=== PATIENT | male | born 1960 | race Caucasian/White ===

== ENCOUNTER → 2017-02-16 | Outpatient (CLI) | payer BC ==
[~2017-02-16] VITALS: Ht 185.4 cm; Wt 92.1 kg
[~2017-02-16] MED LIST: CPRUNK; LORA-741 PO
[2017-02-16 15:33] VITALS: BP 150/95; PULSE 108; Ht 185.4 cm; Wt 92.1 kg
== END | disposition home or self-care (01) ==
LOC: C.NEUR 15:21
PROVIDERS: ATTEND Internal Medicine Pulmonary Disease
DX: R06.83 Snoring (principal); R53.83 Other fatigue

== ENCOUNTER → 2017-03-05 | Outpatient (CLI) | payer BC ==
--- NOTE | 2017-03-08 00:46 | POLYSOMNOGRAPH REPORT ---
CLINICAL DATA: A 57-year-old male with BMI of 26.8 referred for fatigue, intermittent gasping at night, snoring, and poor sleep quality. On the evening of 03/05/2017, a home sleep apnea test was performed using a BIOeCON type 3 monitor. RECORDING RESULTS: Total recording time was 9.6 hours. The patient's monitoring time and estimated sleep time was 8.1 hours. RESPIRATORY DATA: There was no evidence of clinically significant sleep apnea seen. The TAMARA was 2.6. There was 1 obstructive, 1 mixed, and 6 central apneic episodes. There were 13 hypopneic episodes. The longest respiratory event was 46 seconds. OXIMETRY DATA: No hypoxemia was seen. Oxygen jace was 89%. Mean saturation was 92%. HEART RATE DATA: Heart rates ranged from 52-64 beats per minute. SNORING DATA: Snoring was recorded intermittently throughout the night. PHYSICAL THERAPY AIDES TEACHER'S COMMENTS: The patient reported that he slept very well on the night of this exam. Snoring was present throughout the test. There were occasional hypopneas and apneas seen, all of which occurred when he was on his back. IMPRESSION: No evidence of clinically significant sleep apnea/hypopnea or nocturnal hypoxemia. RECOMMENDATIONS: The patient should continue to practice good sleep hygiene. SANDY
== END | disposition home or self-care (01) ==
LOC: C.NEUR 08:30
PROVIDERS: ATTEND Internal Medicine Pulmonary Disease
DX: R53.83 Other fatigue (principal); R06.83 Snoring

== ENCOUNTER → 2017-03-07 | Outpatient (CLI) | payer BC ==
[2017-03-07 11:11] LABS: BLOOD UREA NITROGEN 22 mg/dl (7-18); BUN/CREATININE RATIO 20.4 (10-20)
== END | disposition home or self-care (01) ==
LOC: C.LABBC 08:18
PROVIDERS: ATTEND Urology
DX: C61 Malignant neoplasm of prostate (principal)

== ENCOUNTER → 2017-03-08 | Outpatient (CLI) | payer BC ==
[~2017-03-08] MED LIST changes: +GADAVIST IV PRN
--- NOTE | 2017-03-08 14:54 | DIAGNOSTIC IMAGING REPORT ---
PROSTATE MRI COMBO CLINICAL HISTORY: 57 years-old Male presenting with ELEVATED PSA, 12/10/16. PSA 2.2 ng/mL. TECHNIQUE: Multisequence, multiplanar MR imaging of the prostate was performed before and after the administration of intravenous contrast. Additional postprocessing was performed on a separate Stampt workstation by the radiologist for 3-D volumetric segmentation of the prostate and contouring of region(s) of interest (ALEXUS) for targeting. IV contrast: 9 mL of Gadavist. COMPARISON: CT from 2010. FINDINGS: Prostate: The prostate measures 4.5 x 3.6 x 4.9 cm (DynaCAD prostate boundary segmentation volume 44 mL). Moderate changes of benign prostatic hyperplasia. Precontrast T1 weighted imaging demonstrates no evidence of intrinsic T1 hyperintensity to suggest hemorrhage. Intrinsic T1 hyperintensity within the left seminal vesicle could indicate hemorrhage or inspissated material. No suspicious lesion is apparent in the transition or peripheral zones. Bladder: Bladder wall thickening likely indicating chronic outlet obstruction. Bowel: Mild circumferential thickening of the rectal wall with early enhancement likely indicates presence of internal hemorrhoids. No focal masslike thickening. Peritoneum: No free fluid in the pelvis. Trace bilateral hydroceles. Lymph nodes: No lymphadenopathy in the visualized portion of the pelvis. Vasculature: Iliac vessels patent. Osseous structures: Normal bone marrow signal intensity. Fat-containing inguinal hernias. IMPRESSION: 1. No suspicious lesion in the prostate for targeted biopsy. 2. Benign prostatic hyperplasia. Electronically signed by: Daron Sultana M.D. 03/08/2017 2:53 PM Dictated Date/Time: 03/08/2017 2:39 PM
== END | disposition home or self-care (01) ==
LOC: C.MRIBC 12:18
PROVIDERS: ATTEND Urology
DX: C61 Malignant neoplasm of prostate (principal); R97.20 Elevated prostate specific antigen [PSA]

== ENCOUNTER → 2017-09-12 | Outpatient (CLI) | payer OTHER ==
[~2017-09-12] MED LIST changes: -GADAVIST IV PRN
[2017-09-12 17:31] LABS: BLOOD UREA NITROGEN 18 mg/dl (7-18); CREATININE 1.15 mg/dl (0.60-1.40)
== END | disposition home or self-care (01) ==
LOC: C.LABBC 14:55
PROVIDERS: ATTEND Urology
DX: C61 Malignant neoplasm of prostate (principal)

== ENCOUNTER → 2017-09-24 | Outpatient (CLI) | payer OTHER ==
[~2017-09-24] MED LIST changes: +GADAVIST IV PRN
--- NOTE | 2017-09-24 15:21 | DIAGNOSTIC IMAGING REPORT ---
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 PSA 5.17 ng/mL. TECHNIQUE: Multisequence, multiplanar MR imaging of the prostate was performed before and after the administration of intravenous contrast. Additional postprocessing was performed on a separate abeo workstation by the radiologist for 3-D volumetric segmentation of the prostate and contouring of region(s) of interest (ALEXUS) for targeting. IV contrast: 9 mL of Gadavist. COMPARISON: 03/08/2017. FINDINGS: Prostate: The prostate measures 5.6 x 4.7 x 4.5 cm(DynaCAD prostate boundary segmentation volume 59 mL). PSA density (PSA/prostate volume): 0.088. Moderate changes of benign prostatic hyperplasia. Precontrast T1 weighted imaging demonstrates no evidence of intrinsic T1 hyperintensity to suggest hemorrhage. No suspicious lesion is apparent in the transition or peripheral zones. Seminal vesicles normal. Bladder: Bladder wall thickening likely indicating chronic outlet obstruction. Bowel: Visualized portion of the rectum normal. Peritoneum: No free fluid in the pelvis. Lymph nodes: No lymphadenopathy in the visualized portion of the pelvis. Vasculature: Iliac vessels patent. Abdominal wall: Normal. Osseous structures: Normal bone marrow signal intensity. IMPRESSION: 1. No suspicious lesion in the transition or peripheral zones for targeted biopsy. Additionally, the PSA density of 0.088 is reassuring. 2. Benign prostatic hyperplasia. Electronically signed by: Daron Sultana M.D. 09/24/2017 3:20 PM Dictated Date/Time: 09/24/2017 3:10 PM
== END | disposition home or self-care (01) ==
LOC: C.MRIBC 13:34
PROVIDERS: ATTEND Urology
DX: C61 Malignant neoplasm of prostate (principal); R97.20 Elevated prostate specific antigen [PSA]

== ENCOUNTER → 2017-10-08 | Outpatient (CLI) | payer OTHER ==
[~2017-10-08] MED LIST changes: -GADAVIST IV PRN
== END | disposition home or self-care (01) ==
LOC: C.PATHSPEC 17:23
PROVIDERS: ATTEND Urology
DX: R97.20 Elevated prostate specific antigen [PSA] (principal)